=== PATIENT | female | born 1940 | race Caucasian/White ===

== ENCOUNTER 2018-01-11 07:30 | Inpatient (IN) | payer OTHER ==
[~2018-01-11] VITALS: Ht 152.4 cm; Wt 72.6 kg
[2018-01-11] MEDS ORDERED: IRBESARTAN-HCT1 EAC1 PO (09:27)
[2018-01-11] MEDS ORDERED: TOPROL XL50 M1 PO (09:27)
[2018-01-11] MEDS ORDERED: OMEPRAZOLE20 MG PO (09:27)
[2018-01-11] MEDS ORDERED: CLONIDINE HCL0.2 MG PO (09:28)
[2018-01-11] MEDS ORDERED: ASA81 MG PO (09:28)
[2018-01-20] MEDS ORDERED: XARELTO10 MG PO (18:50)
[2018-01-20] MEDS ORDERED: DUI500 PO (18:50)
[2018-01-20] MEDS ORDERED: PERCOCET 5-3251 EACH PO (18:50)
== END 2018-01-20 18:54 | DRG 470 ==
LOC: SURH 01-18 06:02 → O/R 01-18 06:02 → SURH 01-18 07:30
PROVIDERS: Orthopaedic Surgery
PROC: 0MNN0ZZ Release Right Knee Bursa and Ligament, Open Approach (ICD-10-PCS; 2018-01-18)
PROC: 0SRC0J9 Replacement of Right Knee Joint with Synthetic Substitute, Cemented, Open Approach (ICD-10-PCS; principal; 2018-01-18 10:00)
DX: M17.11 Unilateral primary osteoarthritis, right knee (principal); D62 Acute posthemorrhagic anemia; I10 Essential (primary) hypertension; M81.0 Age-related osteoporosis without current pathological fracture; E03.8 Other specified hypothyroidism